=== PATIENT | male | born 1980 ===

== ENCOUNTER 2017-07-05 18:26 | Emergency (ER) | payer SELFPAY ==
[2017-07-05 18:31] VITALS: RESP 18; TEMP 98.3; O2SAT 98
[2017-07-05] MEDS ORDERED: Tetracaine 0.5% Ophth 2 ML BOTTLE OU ONE (18:54)
[2017-07-05] MEDS ORDERED: Fluorescein 1 mg Ophthalmic Strip ONE (18:56)
[2017-07-05] MEDS ORDERED: Tetracaine 0.5% Ophth (OR ONLY) ONE (18:56)
--- NOTE | 2017-07-05 19:00 | C.PDOC ---
History Of Present Illness 37 y/o male, who presents to the ED complaining of left eye pain starting three days ago. Patient reports he was cutting metal at work and believes piece entered his left eye, and ever since then his symptoms have persisted causing visual changes and red eye. He states he was wearing protective eye wear. Time Seen by Provider: 07/05/17 18:32 Chief Complaint (Nursing): Eye Problem History Per: Patient History/Exam Limitations: no limitations Onset/Duration Of Symptoms: Days (3 days), Sudden Onset, Persistent Current Symptoms Are (Timing): Still Present Injury To Eye?: Yes Associated Symptoms: Pain, Decreased Vision, Discharge From Eye (clear) Past Medical History Reviewed: Historical Data, Nursing Documentation, Vital Signs Vital Signs: Last Vital Signs Temp 98.3 F 07/05/17 18:28 Pulse 75 07/05/17 19:43 Resp 18 07/05/17 19:43 BP 124/75 07/05/17 19:43 Pulse Ox 98 07/05/17 19:45 - Medical History PMH: No Chronic Diseases Surgical History: No Surg Hx Family History: States: Unknown Family Hx - Social History Hx Alcohol Use: Yes Hx Substance Use: No - Immunization History Hx Tetanus Toxoid Vaccination: No Hx Influenza Vaccination: No Hx Pneumococcal Vaccination: No Review Of Systems Constitutional: Negative for: Fever Eyes: Positive for: Pain, Vision Change (left eye), Redness (left) Respiratory: Negative for: Shortness of Breath Gastrointestinal: Negative for: Vomiting Neurological: Negative for: Headache, Dizziness Physical Exam - Physical Exam Appears: Well, Non-toxic, No Acute Distress Skin: Normal Color, Warm, Dry Head: Atraumatic, Normacephalic Eye(s): bilateral: PERRL, EOMI, left: Other (visible foreign body at 10 o'clock and diffuse conjunctival injection) Nose: Normal Neck: Normal ROM Chest: Symmetrical Cardiovascular: Rhythm Regular, No Murmur Respiratory: Normal Breath Sounds, No Wheezing Extremity: Bilateral: Atraumatic Neurological/Psych: Oriented x3, Normal Speech Gait: Steady ED Course And Treatment O2 Sat by Pulse Oximetry: 98 (room air) Pulse Ox Interpretation: Normal Medical Decision Making Medical Decision Making: Impression: 37 y/o male with visible foreign body in eye Plan: -- Tetracaine Disposition Counseled Patient/Family Regarding: Diagnosis, Need For Followup - Disposition Referrals: Edy Mandujano MD [Staff Provider] - Disposition: HOME/ ROUTINE Disposition Time: 19:44 Condition: STABLE Additional Instructions: Necesita hacer un seguimiento con el oftalmlogo en pocos chambers para evaluar el cuerpo extrao de la crnea aplicar 1-2 gotas en el richard hermes veces al da Instructions: Eye Foreign Body (ED) Forms: [employer] (Kazakh) Print Language: AMHARIC - POA Present On Arrival: None - Clinical Impression Clinical Impression: Corneal foreign body - Scribe Statement The provider has reviewed the documentation as recorded by the Scribe 07/05/2017 Scribe Attestation: Kate Levin MD Scribe Attestation: All medical record entries made by the Scribe were at my direction and personally dictated by me. I have reviewed the chart and agree that the record accurately reflects my personal performance of the history, physical exam, medical decision making, and the department course for this patient. I have also personally directed, reviewed, and agree with the discharge instructions and disposition. Procedures - FB Removal Eye Left Consent Obtained: Verbal Consent Time Out Performed: No Location: Left Eye Topical Anesthetic Used: Tetracaine Foreign Body Material: Metal Evidence of Corneal Penetration: Yes Technique: Irrigation, Cotton Tip Swab Procedure Performed Under: Direct Visualization Post-Procedure Medication: Ophthalmic Antibiotic Patient tolerated procedure: Well
[2017-07-05] MEDS ORDERED: Ofloxacin 0.3% Ophth Soln OS STA (19:29)
[2017-07-05 19:45] VITALS: BP 124/75; PULSE 75
== END 2017-07-05 19:49 | disposition home or self-care (01) ==
LOC: C.ER 18:26
DX: T15.02XA Foreign body in cornea, left eye, initial encounter (principal); X58.XXXA Exposure to other specified factors, initial encounter